=== PATIENT | female | born 1945 | race African-American/Black ===

== ENCOUNTER 2021-05-03 12:26 | Inpatient (IN) | payer MEDICARE ==
[~2021-05-03] VITALS: Ht 152.4 cm; Wt 119.3 kg
[2021-05-03 15:02] LABS: BASOPHILS % 0.7 % (0.0-2.0); EOSINOPHILS % 0.6 % (0.0-5.0); HEMATOCRIT. 37.1 % (36.0-48.0); HEMOGLOBIN. 12.5 g/dL (12.0-16.0); LYMPHOCYTES % 24.4 % (20.0-50.0); MEAN CORPUSCULAR HEMOGLOBIN 29.2 pg (28.0-32.0); MEAN CORPUSCULAR VOLUME 86.5 fL (81.0-99.0); MEAN PLATELET VOLUME 9.1 fl (7.4-10.4); MONOCYTES % 6.4 % (2.0-8.0); NEUTROPHILS % 67.9 % (40.0-76.0); PLATELET 273 x1000/uL (130-400); RED BLOOD CELL COUNT 4.29 mill/uL (4.2-5.4); RED CELL DISTRIBUTION WIDTH 12.6 % (11.6-14.6)
[2021-05-03 15:10] LABS: CHLORIDE 106 mEq/L (98-107)
[2021-05-03 15:13] LABS: ETHANOL BLOOD < 10 mg/dL
[2021-05-03] MEDS ORDERED: SODIUM CHLORIDE 0.9% 1,000 ML IV ONE (16:00)
[2021-05-03 16:45] LABS: CLARITY URINE CLEAR (CLEAR); COLOR URINE YELLOW (YELLOW); KETONES URINE TRACE (NEGATIVE); LEUKOCYTE ESTERASE URINE 2+ (NEGATIVE); NITRITE URINE POSITIVE (NEGATIVE); OCCULT BLOOD URINE 1+ (NEGATIVE); PROTEIN URINE NEGATIVE (NEGATIVE); SPECIFIC GRAVITY URINE 1.012 (1.005-1.030)
[2021-05-03] MEDS ORDERED: LORAZEPAM 0.5MG TABLET PO ONE (17:00)
[2021-05-03] MEDS ORDERED: CEFTRIAXONE 1 G PREMIX 50 ML IV ONE (17:00)
[2021-05-03] MEDS ORDERED: HALOPERIDOL LACTATE 5MG/ML VIAL IM ONE (17:00)
[2021-05-03 17:05] LABS: *AMPHETAMINES SCREEN URINE NEGATIVE (NEGATIVE); *BARBITURATES SCREEN URINE NEGATIVE (NEGATIVE)
[2021-05-03 17:06] LABS: *BENZODIAZEPINES SCREEN URINE NEGATIVE (NEGATIVE); *COCAINE SCREEN URINE NEGATIVE (NEGATIVE); CANNABINOID URINE SCREEN NEGATIVE (NEGATIVE); METHADONE URINE SCREEN NEGATIVE (NEGATIVE); OPIATES URINE SCREEN NEGATIVE (NEGATIVE)
[2021-05-03 17:08] LABS: PHENCYCLIDINE URINE SCREEN NEGATIVE (NEGATIVE)
[2021-05-03] MEDS: INSULIN LISPRO 100 UNITS/ML SUBCUT SCH ×2 (18:20→19:16)
[2021-05-03] MEDS ORDERED: MAGNESIUM/ALUMINUM HYDROXIDE/SIMETHICONE 30ML UDC PO PRN (18:30)
[2021-05-03] MEDS ORDERED: ACETAMINOPHEN 325MG TABLET PO PRN (18:30)
[2021-05-03] MEDS ORDERED: HYDROCODONE/ACETAMINOPHEN 5/325MG TABLET PO PRN (18:30)
[2021-05-03] MEDS ORDERED: DIPHENHYDRAMINE 50MG/ML VIAL IV PRN (18:30)
[2021-05-03] MEDS ORDERED: DOCUSATE SODIUM 100MG CAPSULE PO PRN (18:30)
[2021-05-03] MEDS ORDERED: IPRATROPIUM/ALBUTEROL 0.5-3(2.5)MG/3ML NEB NEB PRN (18:30)
[2021-05-03] MEDS ORDERED: CEFTRIAXONE 1 G PREMIX 50 ML IV SCH (18:30)
[2021-05-03] MEDS ORDERED: NA PHOS,M-B/NA PHOS,DI-BA ENEMA 118ML PR PRN (18:30)
[2021-05-03] MEDS ORDERED: ONDANSETRON HCL 4MG/2ML INJ IV PRN (18:30)
[2021-05-03] MEDS ORDERED: ACETAMINOPHEN 650MG SUPP PR PRN (18:30)
[2021-05-03] MEDS ORDERED: NALOXONE HCL 0.4MG/ML VIAL IV PRN (18:30)
[2021-05-03] MEDS ORDERED: ACETAMINOPHEN 650MG/20.3ML UDC GT PRN (18:30)
[2021-05-03] MEDS ORDERED: DEXTROSE 50% WATER 50ML SYRINGE IV PRN (18:30)
[2021-05-03] MEDS ORDERED: GUAIFENESIN 200MG/10ML SUGAR FREE UDC PO PRN (18:30)
[2021-05-03] MEDS ORDERED: LORAZEPAM 0.5MG TABLET PO PRN (18:30)
[2021-05-03] MEDS: CLONIDINE 0.1MG TABLET PO PRN (19:08)
[2021-05-03] MEDS: BLOOD SUGAR DIAGNOSTIC STRIP TEST SCH ×2 (19:13→21:20)
[2021-05-03 19:35] LABS: INR 1.1; PROTHROMBIN TIME 11.9 sec (9.6-11.0)
[2021-05-03] MEDS: FAMOTIDINE 20MG TABLET PO SCH (22:21)
[2021-05-03] MEDS: ENOXAPARIN 30MG/0.3ML SYR SUBCUT SCH (22:22)
[2021-05-03 23:00] VITALS: BP 150/52
[2021-05-04] VITALS (8 sets, daily range): BP systolic 140–193; BP diastolic 52–75
[2021-05-04] MEDS: CLONIDINE 0.1MG TABLET PO PRN ×3 (05:24→18:09)
[2021-05-04] MEDS: BLOOD SUGAR DIAGNOSTIC STRIP TEST SCH ×4 (06:27→21:01)
[2021-05-04] MEDS: INSULIN LISPRO 100 UNITS/ML SUBCUT SCH ×4 (06:27→21:00)
[2021-05-04] MEDS: ENOXAPARIN 30MG/0.3ML SYR SUBCUT SCH ×2 (08:30→20:59)
[2021-05-04 08:31] LABS: BASOPHILS % 0.7 % (0.0-2.0); EOSINOPHILS % 0.2 % (0.0-5.0); HEMATOCRIT. 35.3 % (36.0-48.0); HEMOGLOBIN. 11.6 g/dL (12.0-16.0); LYMPHOCYTES % 30.8 % (20.0-50.0); MEAN CORPUSCULAR HEMOGLOBIN 28.7 pg (28.0-32.0); MEAN CORPUSCULAR VOLUME 87.3 fL (81.0-99.0); MEAN PLATELET VOLUME 9.1 fl (7.4-10.4); MONOCYTES % 8.1 % (2.0-8.0); NEUTROPHILS % 60.2 % (40.0-76.0); PLATELET 243 x1000/uL (130-400); RED BLOOD CELL COUNT 4.05 mill/uL (4.2-5.4); RED CELL DISTRIBUTION WIDTH 12.4 % (11.6-14.6)
[2021-05-04 08:37] LABS: CHLORIDE 105 mEq/L (98-107)
[2021-05-04 08:49] LABS: LDL CHOLESTEROL 51 mg/dL (5-100)
[2021-05-04 08:50] LABS: CREATINE KINASE 209 IU/L (26-192)
[2021-05-04 08:51] LABS: HDL CHOLESTEROL 62 mg/dL (40-59); T4 FREE 1.26 ng/dL (0.76-1.46)
[2021-05-04] MEDS: CEFTRIAXONE 1,000 MG in DEXTROSE 5% WATER 50 ML IV SCH (09:46)
[2021-05-04] MEDS: AMLODIPINE 2.5MG TABLET PO SCH (13:00)
[2021-05-04] MEDS ORDERED: ASPI-1497 MT (14:48)
[2021-05-04] MEDS ORDERED: SIMV-46 MT (14:48)
[2021-05-04] MEDS ORDERED: INSU100I28 SQ (14:48)
[2021-05-04] MEDS ORDERED: ALEN70TA79 MT (14:48)
[2021-05-04] MEDS ORDERED: FURO-152 MT (14:48)
[2021-05-04] MEDS ORDERED: LISI20TA31 MT (14:48)
[2021-05-04] MEDS ORDERED: METF500T MT (14:48)
[2021-05-04] MEDS ORDERED: GABA-290 MT (14:48)
[2021-05-04] MEDS ORDERED: ATEN50TA MT (14:48)
[2021-05-04] MEDS: FAMOTIDINE 20MG TABLET PO SCH (20:58)
[2021-05-04 21:54] LABS: CREATINE KINASE MB FRACTION 1.2 ng/mL (0.5-3.6)
[2021-05-05] VITALS (8 sets, daily range): BP systolic 120–177; BP diastolic 61–91
[2021-05-05] MEDS: CLONIDINE 0.1MG TABLET PO PRN ×2 (00:15→16:19)
[2021-05-05] MEDS: INSULIN LISPRO 100 UNITS/ML SUBCUT SCH ×4 (06:22→23:12)
[2021-05-05] MEDS: BLOOD SUGAR DIAGNOSTIC STRIP TEST SCH ×4 (06:22→21:00)
[2021-05-05 06:47] LABS: BASOPHILS % 0.7 % (0.0-2.0); HEMATOCRIT. 37.2 % (36.0-48.0); HEMOGLOBIN. 12.4 g/dL (12.0-16.0); LYMPHOCYTES % 28.3 % (20.0-50.0); MEAN CORPUSCULAR HEMOGLOBIN 28.8 pg (28.0-32.0); MEAN CORPUSCULAR VOLUME 86.4 fL (81.0-99.0); MEAN PLATELET VOLUME 8.3 fl (7.4-10.4); MONOCYTES % 7.6 % (2.0-8.0); NEUTROPHILS % 62.4 % (40.0-76.0); PLATELET 275 x1000/uL (130-400); RED BLOOD CELL COUNT 4.31 mill/uL (4.2-5.4); RED CELL DISTRIBUTION WIDTH 12.4 % (11.6-14.6)
[2021-05-05 08:25] LABS: CHLORIDE 104 mEq/L (98-107)
[2021-05-05] MEDS: AMLODIPINE 2.5MG TABLET PO SCH (09:08)
[2021-05-05] MEDS: CEFTRIAXONE 1,000 MG in DEXTROSE 5% WATER 50 ML IV SCH (09:08)
[2021-05-05] MEDS: ENOXAPARIN 30MG/0.3ML SYR SUBCUT SCH ×2 (09:09→23:10)
[2021-05-05] MEDS: GABAPENTIN 300MG CAPSULE PO SCH ×2 (17:28→23:10)
[2021-05-05] MEDS ORDERED: GABAPENTIN 300MG CAPSULE PO SCH (22:00)
[2021-05-05] MEDS: FAMOTIDINE 20MG TABLET PO SCH (23:10)
[2021-05-06] VITALS: BP 152/74
[2021-05-06 04:00] VITALS: BP 138/68
[2021-05-06] MEDS: BLOOD SUGAR DIAGNOSTIC STRIP TEST SCH ×2 (05:15→11:54)
[2021-05-06] MEDS: LEVOTHYROXINE SODIUM 25MCG TABLET PO SCH ×2 (05:23→05:31)
[2021-05-06] MEDS: GABAPENTIN 300MG CAPSULE PO SCH ×2 (05:23→13:34)
[2021-05-06] MEDS: INSULIN LISPRO 100 UNITS/ML SUBCUT SCH ×2 (05:30→11:54)
[2021-05-06 06:13] LABS: BASOPHILS % 0.9 % (0.0-2.0); EOSINOPHILS % 2.7 % (0.0-5.0); HEMATOCRIT. 33.9 % (36.0-48.0); HEMOGLOBIN. 11.2 g/dL (12.0-16.0); LYMPHOCYTES % 35.9 % (20.0-50.0); MEAN CORPUSCULAR HEMOGLOBIN 28.4 pg (28.0-32.0); MEAN CORPUSCULAR VOLUME 85.8 fL (81.0-99.0); MEAN PLATELET VOLUME 8.6 fl (7.4-10.4); NEUTROPHILS % 52.5 % (40.0-76.0); PLATELET 234 x1000/uL (130-400); RED BLOOD CELL COUNT 3.95 mill/uL (4.2-5.4); RED CELL DISTRIBUTION WIDTH 12.6 % (11.6-14.6)
[2021-05-06 06:26] LABS: CHLORIDE 106 mEq/L (98-107)
[2021-05-06 08:00] VITALS: BP 176/76
[2021-05-06] MEDS: AMLODIPINE 2.5MG TABLET PO SCH (09:54)
[2021-05-06] MEDS: CEFTRIAXONE 1,000 MG in DEXTROSE 5% WATER 50 ML IV SCH (09:54)
[2021-05-06] MEDS: ENOXAPARIN 30MG/0.3ML SYR SUBCUT SCH (09:55)
[2021-05-06] MEDS: CLONIDINE 0.1MG TABLET PO PRN (11:54)
[2021-05-06 12:00] VITALS: BP 173/71
[2021-05-06 15:44] VITALS: BP 138/57
[2021-05-06 16:00] VITALS: BP 138/57
== END 2021-05-06 17:20 | disposition home or self-care (01) | DRG 70 ==
LOC: ER 12:26 → 8WST 16:48 → EDBEDREQ 16:51 → EDBEDREQSVC 16:51 → ENRESERV 21:12 → 8WST 05-04 20:15
PROVIDERS: ADMIT Internal Medicine; ATTEND Internal Medicine
PROC: 4A10X4Z Monitoring of Central Nervous Electrical Activity, External Approach (ICD-10-PCS; principal; 2021-05-06)
DX: G93.41 Metabolic encephalopathy (principal); J18.9 Pneumonia, unspecified organism; N39.0 Urinary tract infection, site not specified; I16.1 Hypertensive emergency; Z68.43 Body mass index [BMI] 50.0-59.9, adult; I11.9 Hypertensive heart disease without heart failure; E66.01 Morbid (severe) obesity due to excess calories; E03.9 Hypothyroidism, unspecified; Z20.822 Contact with and (suspected) exposure to COVID-19; E11.40 Type 2 diabetes mellitus with diabetic neuropathy, unspecified; E11.65 Type 2 diabetes mellitus with hyperglycemia; Z79.4 Long term (current) use of insulin; Z79.82 Long term (current) use of aspirin; Z79.899 Other long term (current) drug therapy
CPT/HCPCS: 36415; 70551; 71045; 80048; 80053; 80061; 80305; 80320; 81003; 82140; 82550; 82553; 82962; 83036; 84439; 84443; 84484; 85025; 87077; 87186; 87426; 93005; 93970; 95816; 97161; 99285; J0696; J1630; J1650; J1815; J7030; J7060; G0480